=== PATIENT | male | born 1945 | race Two or more races ===

== ENCOUNTER 2018-04-16 10:26 | Day surgery (SDC) | payer OTHER ==
[~2018-04-16 10:26] MED LIST: AMIODARONE H50 MG/M1 PO; BRAIN MIGHT-DH1 EACH PO; COZAAR100 MG PO; FLEVOXIN TABLE1 EACH PO; LASIX40 MG PO; NORVASC5 MG PO; PRAVASTATIN SOD40 MG PO; TOPROL XL200 MG PO; [UNRECOGNIZED DRUG - OTHER] PO
== END 2018-04-16 13:20 | disposition home or self-care (01) ==
LOC: AMB-ENDOS 10:26
DX: K64.1 Second degree hemorrhoids (principal)

== ENCOUNTER 2019-06-24 06:25 | Day surgery (SDC) | payer OTHER | END 2019-06-24 10:20 | disposition home or self-care (01) | LOC: AMB-ENDOS 06:25 → ADM 13:15 | DX: K62.89 Other specified diseases of anus and rectum (principal); K64.1 Second degree hemorrhoids ==

== ENCOUNTER 2021-04-12 08:11 | Day surgery (SDC) | payer OTHER | END 2021-04-12 13:35 | disposition home or self-care (01) | LOC: AMB-ENDOS 08:11 | PROVIDERS: ATTEND Colon & Rectal Surgery | DX: D12.4 Benign neoplasm of descending colon (principal); K64.1 Second degree hemorrhoids ==